=== PATIENT | male | born 1935 | race African-American/Black ===

== ENCOUNTER 2017-07-14 12:23 | Emergency (ER) | payer MEDICARE ==
[~2017-07-14] VITALS: Ht 180.3 cm; Wt 76.2 kg
[~2017-07-14 12:23] MED LIST: ASPIRIN-LOW81 MG ORAL; CLINDAMYCIN HC300 MG ORAL; DEBROX15 M1 BOTH EARS; DEBROX15 M1 OT; DIABETA5 MG ORAL; FOSINOPRIL SODI10 MG ORAL; HYDROCHLOROTHIA25 MG ORAL; METFORMIN HCL500 M1 ORAL; NORCO 5-325 TA1 EACH ORAL; PRAVASTATIN SOD20 M1 ORAL
--- NOTE | 2017-07-14 12:53 | Emergency Room Report ---
History of Present Illness General Chief Complaint: Upper Extremity Injury Source: Patient Present Illness HPI 82 YO Male presents to the ED c/o left hand swelling and bruising s/p fall on grass yesterday. pt. denies hitting his head, he denies LOC. denies pain at this time. Denies numbness tingling or loss of sensation or gross motor movements of the extremities, incontinence of bowel or bladder. Denies CP, Palpitations, LOC, AMS , dizziness, Changes in Vision, Sensation, paresthesias, or a sudden severe headache. Allergies: Coded Allergies: No Known Allergies (Verified , 08/10/11) Patient History Past Medical History: see triage record Past Surgical History: none Pertinent Family History: none Immunizations: UTD Reviewed Nursing Documentation: PMH: Agreed, PSxH: Agreed Nursing Documentation-PMH Past Medical History: No History, Except For Hx Cardiac Problems: Yes Hx Hypertension: Yes Hx Pacemaker: No Hx Asthma: No Hx COPD: No Hx Diabetes: Yes Hx Cancer: No Hx Gastrointestinal Problems: No Hx Dialysis: No History Of Psychiatric Problem: No Hx Neurological Problems: No Hx Cerebrovascular Accident: No Hx Seizures: No Review of Systems All Other Systems: negative except mentioned in HPI Physical Exam Vital Signs Date Time Temp Pulse Resp B/P (MAP) Pulse Ox O2 Delivery O2 Flow Rate FiO2 07/14/ 12:27 97.3 93 16 136/66 99 Room Air Sp02 EP Interpretation: reviewed, normal General Appearance: no apparent distress, alert, GCS 15, non-toxic Head: normocephalic, atraumatic Eyes: bilateral eye normal inspection, bilateral eye PERRL ENT: hearing grossly normal, normal voice Neck: full range of motion, supple/symm/no masses Respiratory: lungs clear, normal breath sounds, speaking full sentences Cardiovascular #1: regular rate, rhythm, normal capillary refill Rectal: deferred Musculoskeletal: back normal, gait/station normal, normal range of motion, non- tender, swelling - swelling, bruising to the left dorsal knuckles with extensive palmar bruising . Neurologic: alert, oriented x3, responsive, motor strength/tone normal, sensory intact, normal gait, speech normal, grossly normal Skin: no rash, warm/dry, well hydrated, other - swelling, bruising to the left dorsal knuckles with extensive palmar bruising . Procedures Additional Procedure Procedure Narrative -Single attempt was made to reduce the displacement of the fracture using traction and digital manipulation of the bones. - Clinical alignment is obtained. -Pt. tolerated the Procedure well. without need for anesthesia. -Volar hand splint is applied the telecasting technician, patient remained neurovascularly intact. -Discussed the need to followup with an commodity management specialist. Medical Decision Making YADY Attmitch Mae is my supervising Physician whom patient management has been discussed with. Diagnostic Impression: Primary Impression: Fracture of multiple phalanges of hand Qualified Codes: S62.609A - Fracture of unspecified phalanx of unspecified finger, initial encounter for closed fracture ER Course Pt. presents to the ED c/o left hand swelling and bruising s/p fall on grass yesterday. pt. denies hitting his head, he denies LOC. Ddx considered but are not limited to Fracture, dislocation, contusion, Sprain/ Strain/Spasm. Vital signs: are WNL, pt. is afebrile H&PE are most consistent with musculoskeletal injury will perform imaging to r/ o fractures/dislocations. ORDERS: - X-ray left hand 3 views - negative for fx, Dislocation, or significant soft tissue injury, per preliminary read in ED, and signed by YADY Fermin , my supervising physician has reviewed, and agrees with my interpretation. ED INTERVENTIONS: - -Single attempt was made to reduce the displacement of the fracture using traction and digital manipulation of the bones. - Clinical alignment is obtained. -Pt. tolerated the Procedure well. without need for anesthesia. -Volar hand splint is applied the telecasting technician, patient remained neurovascularly intact. -Discussed the need to followup with an commodity management specialist. DISCHARGE: At this time pt. is stable for d/c to home. Will provide printed patient care instructions, and any necessary prescriptions. Care plan and follow up instructions have been discussed with the patient prior to discharge. Last Vital Signs Date Time Temp Pulse Resp B/P (MAP) Pulse Ox O2 Delivery O2 Flow Rate FiO2 07/14/17 12:27 97.3 93 16 136/66 99 Room Air Disposition: HOME, SELF-CARE Condition: Stable Scripts Acetaminophen* (TYLENOL EXTRA STRENGTH*) 500 Mg Tablet 500 MG ORAL Q6H, #20 TAB 0 Refills Prov: Columba Fermin 07/14/17 Patient Instructions: Finger Fracture Additional Instructions: Take medications as directed. Follow up with an SOLDERER ASSEMBLER in 3-5 days, even if your symptoms have resolved. --Please review list of primary care clinics, if you do not already have a primary care provider Return sooner to ED if new symptoms occur, or current symptoms become worse. - Please note that this Emergency Department Report was dictated using [employer] microprobe operator technology software, occasionally this can lead to erroneous entry secondary to interpretation by the dictation equipment. Columba Fermin Jul 14, 2017 12:53
[2017-07-14] MEDS ORDERED: TYLENOL EXTRA500 MG ORAL (15:50)
[2017-07-14 16:00] VITALS: BP 132/68
--- NOTE | 2017-07-15 12:29 | Diagnostic Imaging Report ---
Indication: Pain status post fall Technique: XRAY Hand Complete L Comparison: None Findings: The bones are diffusely demineralized. There is mildly displaced and related fractures to the base of the second, third and fourth proximal phalanges. No associated dislocation. Question remote fracture deformities of the second and fourth metacarpal shafts. No radiopaque foreign body seen. Impression: Acute, displaced and angulated fractures of the second, third and fourth proximal phalangeal bases. This corresponds with the [facility] preliminary report.
== END 2017-07-14 16:05 | disposition home or self-care (01) ==
LOC: EMR 13:12
DX: S62.611A Displaced fracture of proximal phalanx of left index finger, initial encounter for closed fracture (principal); S62.613A Displaced fracture of proximal phalanx of left middle finger, initial encounter for closed fracture; S62.615A Displaced fracture of proximal phalanx of left ring finger, initial encounter for closed fracture; W19.XXXA Unspecified fall, initial encounter; Y92.89 Other specified places as the place of occurrence of the external cause; I10 Essential (primary) hypertension; E11.9 Type 2 diabetes mellitus without complications
CPT/HCPCS: 29125; 99283

== ENCOUNTER 2019-04-21 16:00 | Inpatient (IN) | payer MEDICARE ==
[~2019-04-21] VITALS: Ht 180.3 cm; Wt 64.0 kg
[~2019-04-21 16:00] MED LIST changes: +TYLENOL EXTRA500 MG ORAL
--- NOTE | 2019-04-21 16:10 | NUR ---
ED Nurse Note: pt arrives via [facility] for c/o low blood glucose at home. 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 denies n/v/dyspnea or pain. states family is en route here also. lydia norton.
--- NOTE | 2019-04-21 16:23 | Emergency Room Report ---
History of Present Illness General Chief Complaint: Abnormal Labs Source: Patient Present Illness HPI Patient presents with hypoglycemia. Initial sugar was 24. He takes oral medication and not insulin. Apparently he did not eat today. He denies any nausea, vomiting, diarrhea or pain in his body. There is no productive cough or sore throat. EMS report that his blood sugar was improved 209 after administration of D10 water in the field. No fevers, chills, chest pain, palpitations, dysuria, abdominal pain, shortness of breath, joint pain, rashes, depression, anxiety, visual changes, headache. Allergies: Coded Allergies: No Known Allergies (Verified , 08/10/11) Patient History Past Medical History: see triage record Social History: Reports: smoking; Denies: alcohol use, drug use Social History Narrative From home and lives with son Reviewed Nursing Documentation: PMH: Agreed; PSxH: Agreed Nursing Documentation-PMH Past Medical History: No History, Except For Hx Cardiac Problems: Yes Hx Hypertension: Yes Hx Pacemaker: No Hx Asthma: No Hx COPD: No Hx Diabetes: Yes Hx Cancer: No Hx Gastrointestinal Problems: No Hx Dialysis: No Hx Neurological Problems: No Hx Cerebrovascular Accident: No Hx Seizures: No Review of Systems All Other Systems: negative except mentioned in HPI Physical Exam Vital Signs Date Time Temp Pulse Resp B/P (MAP) Pulse Ox O2 Delivery O2 Flow Rate FiO2 04/21/19 16:05 75 16 137/55 (82) 98 Room Air Sp02 EP Interpretation: reviewed, normal General Appearance: alert, non-toxic, thin, Chronically Ill Head: normocephalic Eyes: bilateral eye normal inspection, bilateral eye PERRL, bilateral eye EOMI ENT: moist mucus membranes Neck: supple Respiratory: chest non-tender, lungs clear, normal breath sounds Cardiovascular #1: regular rate, rhythm Cardiovascular #2: 2+ radial (R) Gastrointestinal: normal inspection, normal bowel sounds, non tender, no mass, non-distended, scaphoid Genitourinary: no CVA tenderness Musculoskeletal: back normal, normal range of motion Neurologic: alert, motor strength/tone normal, DTRs symmetric, sensory intact, oriented - X2 Psychiatric: depressed affect Skin: warm/dry, other - Xerosis Medical Decision Making Diagnostic Impression: Primary Impression: Hypoglycemia Additional Impressions: UTI (urinary tract infection) Qualified Codes: N39.0 - Urinary tract infection, site not specified Diabetes Qualified Codes: 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 Differential includes not eating, acute myocardial infarction, electrolyte imbalance, renal failure, occult infection amongst others. Evaluation with EKG, chest x-ray and labs. Repeat Accu-Cheks and also diet will be given to the patient. The patient is placed on a fibreglass laminator. There is concern as the patient is on oral hypoglycemics which may cause prolonged hypoglycemia. EKG without injury. Chest x-ray no infiltrates. Labs with normal white count. Low blood sugar. Pyuria. Antibiotics given for urinary tract infection. Discussed with Dr. Mariano who wants patient to stay for observation. Glucose 74 after eating. D10W started. Blood sugar 82 at admission. Discussed with Dr. Serna. Laboratory Tests Test 04/21/19 16:50 04/21/19 18:35 White Blood Count 5.2 K/UL (4.8-10.8) Red Blood Count 4.01 M/UL (4.70-6.10) L Hemoglobin 11.2 G/DL (14.2-18.0) L Hematocrit 35.3 % (42.0-52.0) L Mean Corpuscular Volume 88 FL (80-99) Mean Corpuscular Hemoglobin 27.8 PG (27.0-31.0) Mean Corpuscular Hemoglobin Concent 31.6 G/DL (32.0-36.0) L Red Cell Distribution Width 15.4 % (11.6-14.8) H Platelet Count 386 K/UL (150-450) Mean Platelet Volume 5.7 FL (6.5-10.1) L Neutrophils (%) (Auto) 74.2 % (45.0-75.0) Lymphocytes (%) (Auto) 20.1 % (20.0-45.0) Monocytes (%) (Auto) 4.2 % (1.0-10.0) Eosinophils (%) (Auto) 0.6 % (0.0-3.0) Basophils (%) (Auto) 1.0 % (0.0-2.0) Prothrombin Time 10.7 SEC (9.30-11.50) Prothrombin Time INR 1.0 (0.9-1.1) PTT 25 SEC (23-33) Sodium Level 143 MMOL/L (136-145) Potassium Level 3.3 MMOL/L (3.5-5.1) L Chloride Level 103 MMOL/L (98-107) Carbon Dioxide Level 32 MMOL/L (21-32) Anion Gap 8 mmol/L (5-15) Blood Urea Nitrogen 12 mg/dL (7-18) Creatinine 1.0 MG/DL (0.55-1.30) Estimate Glomerular Filtration Rate mL/min (>60) Glucose Level 67 MG/DL (74-106) L Calcium Level 8.2 MG/DL (8.5-10.1) L Total Bilirubin 0.4 MG/DL (0.2-1.0) Aspartate Amino Transferase (AST) 27 U/L (15-37) Alanine Aminotransferase (ALT) 12 U/L (12-78) Alkaline Phosphatase 60 U/L (46-116) Total Creatine Kinase 103 U/L (26-308) Troponin I 0.004 ng/mL (0.000-0.056) Pro-B-Type Natriuretic Peptide 1001 pg/mL (0-125) H Total Protein 6.4 G/DL (6.4-8.2) Albumin 2.7 G/DL (3.4-5.0) L Globulin 3.7 g/dL Albumin/Globulin Ratio 0.7 (1.0-2.7) L Lipase 65 U/L (73-393) L Urine Color Yellow Urine Appearance Clear Urine pH 5 (4.5-8.0) Urine Specific [place] 1.015 (1.005-1.035) Urine Protein 1+ (NEGATIVE) H Urine Glucose (UA) Negative (NEGATIVE) Urine Ketones 1+ (NEGATIVE) H Urine Blood Negative (NEGATIVE) Urine Nitrite Negative (NEGATIVE) Urine Bilirubin Negative (NEGATIVE) Urine Urobilinogen 1 MG/DL (0.0-1.0) H Urine Leukocyte Esterase 2+ (NEGATIVE) H Urine RBC 2-4 /HPF (0 - 0) H Urine WBC 5-10 /HPF (0 - 0) H Urine Squamous Epithelial Cells None /LPF (NONE/OCC) Urine Amorphous Sediment Few /LPF (NONE) H Urine Bacteria Few /HPF (NONE) EKG Diagnostic Results Rate: normal Rhythm: NSR ST Segments: no acute changes Rhythm Strip Diag. Results EP Interpretation: yes Rhythm: NSR, no PVC's, no ectopy Chest X-Ray Diagnostic Results Chest X-Ray Diagnostic Results : Chest X-Ray Ordered: Yes # of Views/Limited/Complete: 1 View Indication: Other EP Interpretation: Yes Interpretation: no consolidation, no effusion, no pneumothorax Impression: No acute disease Electronically Signed by: Electronically signed by Aldair Zhao MD Last Vital Signs Date Time Temp Pulse Resp B/P (MAP) Pulse Ox O2 Delivery O2 Flow Rate FiO2 04/21/19 16:05 75 16 137/55 (82) 98 Room Air Status: improved Disposition: PLACE IN OBSERVATION Condition: Serious Aldair Zhao MD Apr 21, 2019 16:23
--- NOTE | 2019-04-21 16:30 | Diagnostic Imaging Report ---
Indication: Dyspnea Comparison: 11/07/2010 A single view chest radiograph was obtained. Findings: No definite infiltrate or pulmonary vascular congestion identified. The heart is normal in size. The aorta is mildly enlarged consistent with atherosclerotic vascular disease. The bones are osteopenic. Impression: No acute disease
--- NOTE | 2019-04-21 16:50 | NUR ---
ED Nurse Note: pt tolerates lab draw by rn. pt without aloc, speaking with son and is a/ox4 now.
--- NOTE | 2019-04-21 17:17 | NUR ---
ED Nurse Note: pt remains a/ox4, denies c/o at this time.awaiting lab results
[2019-04-21 17:20] LABS: ANION GAP 8 mmol/L (5-15); BLOOD UREA NITROGEN 12 mg/dL (7-18); CALCIUM 8.2 MG/DL (8.5-10.1); CARBON DIOXIDE 32 MMOL/L (21-32); CHLORIDE 103 MMOL/L (98-107); EOSINOPHILS % (AUTO) 0.6 % (0.0-3.0); HEMATOCRIT 35.3 % (42.0-52.0); HEMOGLOBIN 11.2 G/DL (14.2-18.0); LYMPHOCYTES % (AUTO) 20.1 % (20.0-45.0); MEAN CORPUSCULAR VOLUME 88 FL (80-99); MONOCYTES % (AUTO) 4.2 % (1.0-10.0); NEUTROPHILS % (AUTO) 74.2 % (45.0-75.0); PLATELET COUNT 386 K/UL (150-450); POTASSIUM 3.3 MMOL/L (3.5-5.1); RED BLOOD COUNT 4.01 M/UL (4.70-6.10); RED CELL DISTRIBUTION WIDTH 15.4 % (11.6-14.8); SODIUM 143 MMOL/L (136-145); WHITE BLOOD COUNT 5.2 K/UL (4.8-10.8)
--- NOTE | 2019-04-21 17:21 | NUR ---
ED Nurse Note: food tray given to pt. pt remains a/ox4
[2019-04-21 17:23] VITALS: BP 146/96
[2019-04-21 17:30] LABS: ALANINE AMINOTRANSFERASE 12 U/L (12-78); ALBUMIN 2.7 G/DL (3.4-5.0); ALBUMIN/GLOBULIN RATIO 0.7 (1.0-2.7); ALKALINE PHOSPHATASE 60 U/L (46-116); ASPARTATE AMINO TRANSFERASE 27 U/L (15-37); BILIRUBIN,TOTAL 0.4 MG/DL (0.2-1.0); CREATINE KINASE 103 U/L (26-308)
--- NOTE | 2019-04-21 18:02 | NUR ---
ED Nurse Note: pt with repeat accucheck as 54 after eating. md aware, pt tolerating po juice, remains a/ox4.
[2019-04-21 18:09] VITALS: BP 173/105
--- NOTE | 2019-04-21 18:20 | NUR ---
ED Nurse Note: md aware of htn and need for meds treatment for admit to m/s unit
[2019-04-21 18:47] VITALS: BP 163/119
[2019-04-21] MEDS ORDERED: Dextrose 10% 1,000 ML IV SCH (19:00)
[2019-04-21 19:01] LABS: APPEARANCE,URINE CLEAR; BILIRUBIN, URINE NEGATIVE (NEGATIVE); GLUCOSE, URINE (UA) NEGATIVE (NEGATIVE); KETONES,URINE 1+ (NEGATIVE); LEUKOCYTE ESTERASE ,URINE 2+ (NEGATIVE); NITRITE,URINE NEGATIVE (NEGATIVE); PH,URINE 5 (4.5-8.0); PROTEIN,URINE 1+ (NEGATIVE); UROBILINOGEN,URINE 1 MG/DL (0.0-1.0)
[2019-04-21 19:02] LABS: COLOR,URINE YELLOW
--- NOTE | 2019-04-21 19:28 | NUR ---
ED Nurse Note: pt with d10% infusing well via pump . report to oncoming rn
--- NOTE | 2019-04-21 19:28 | NUR ---
ED Nurse Note: belongings list done.
[2019-04-21] MEDS ORDERED: cefTRIAXone 1 GM in NS 55 ML IVPB ONE (19:30)
[2019-04-21 19:50] VITALS: BP 149/59
--- NOTE | 2019-04-21 20:00 | NUR ---
ED Nurse Note: telephone report given to JERONIMO Dailey for continuity of care
--- NOTE | 2019-04-21 20:20 | NUR ---
TRANSFER TO FLOOR: Patient transferred to [facility] as ordered, per dr. carl. Report given to erika michael. Belongings given to pt.
[2019-04-21 20:56] VITALS: BP 135/82
--- NOTE | 2019-04-21 21:00 | NUR ---
nurse's notes: received patient from ED awake, alert, ambulatory and oriented x 3 with periods of forgetfulness; placed on 2l/min via nasal cannula; o2 sats on RA between 60-80%; unable to get real HR, noted between high 40s to 176bpm.
--- NOTE | 2019-04-21 21:04 | NUR ---
nurse's notes: BS 68 upon arrival to the floor; awaiting return call of dr. zimmerman for possible change in admission order from [facility] to tele
--- NOTE | 2019-04-21 22:00 | NUR ---
NURSE NOTES: Received report from Tereso Jerome RN. Regarding patients transfer from [facility] to [facility] floor. Belongings checked and noted. Head to toe assessment initiated with no observed skin issue. Patient in bed AAO x3-4 with no complaints of acute pain at this time. IV line intact and patent, placed on continuous cardiac monitoring per protocol. Floor orders received and transferred. Kept clean, dry, and comfortable in bed. Safety precaution in place; siderails X3 up, call light within reach, bed in lowest position, brakes and alarm on at all times. Needs and wants anticipated and attended. Will continue plan of care.
[2019-04-21] MEDS: Dextrose 10% 1,000 ML IV SCH (22:12)
[2019-04-22] VITALS: BP 106/58
--- NOTE | 2019-04-22 03:03 | NUR ---
NURSE NOTES: Patient in bed with no S/S of distress/ will continue to monitor.
[2019-04-22 04:00] VITALS: BP 147/70
[2019-04-22 06:55] LABS: BASOPHILS % (AUTO) 0.5 % (0.0-2.0); EOSINOPHILS % (AUTO) 1.3 % (0.0-3.0); HEMATOCRIT 30.5 % (42.0-52.0); HEMOGLOBIN 9.5 G/DL (14.2-18.0); LYMPHOCYTES % (AUTO) 26.2 % (20.0-45.0); MEAN CORPUSCULAR VOLUME 88 FL (80-99); NEUTROPHILS % (AUTO) 65.1 % (45.0-75.0); PLATELET COUNT 382 K/UL (150-450); RED BLOOD COUNT 3.47 M/UL (4.70-6.10); RED CELL DISTRIBUTION WIDTH 16.1 % (11.6-14.8); WHITE BLOOD COUNT 6.4 K/UL (4.8-10.8)
[2019-04-22 07:20] LABS: ANION GAP 9 mmol/L (5-15); BLOOD UREA NITROGEN 10 mg/dL (7-18); CALCIUM 8.2 MG/DL (8.5-10.1); CARBON DIOXIDE 30 MMOL/L (21-32); CHLORIDE 99 MMOL/L (98-107); CREATININE 1.1 MG/DL (0.55-1.30); SODIUM 138 MMOL/L (136-145)
--- NOTE | 2019-04-22 07:21 | NUR ---
HAND-OFF: Report given to Hadley Johnson RN. Patient in bed with no S/S of distress. Endorsed plan of care.
--- NOTE | 2019-04-22 07:30 | NUR ---
NURSE NOTES: Received report from JERONIMO Salvador. The patient is resting on the bed without acute distress or shortness of breath. The patient's bed in the lowest position, call light in reach, and fall and aspiration precaution reinforced. IV site on R hand 22G is intact and patent and running D10 50mL/hr. Per Sep, Dr. Serna will put rest on the order as soon as possible. Will continue plan of care.
[2019-04-22 08:00] VITALS: BP 126/57
[2019-04-22] MEDS: cefTRIAXone 1gm/D5W 55ml IVPB SCH ×2 (09:50)
[2019-04-22] MEDS ORDERED: LEVAQUIN500 MG ORAL (10:13)
--- NOTE | 2019-04-22 11:26 | NUR ---
NURSE NOTES: Dr. Serna ordered the patient to be discharged as the patient is stable. Dr. Serna ordered 40mEq KCL for hypkalemia, and discharged to home with home health and home medication except diabetic medication and follow up with primary care physician. Notified Dr. Serna that he has been on 2L NC for breathing support and would like to order supplemental oxygen on way home. Will follow up regarding it. Will continue plan of care until clarification cane be made. Addendum: 04/22/19 at 1528 by Bruno Johnson RN Hypokalemia
--- NOTE | 2019-04-22 11:38 | NUR ---
NURSE NOTES: Paged Dr. Serna again for episode of 6 beats of v-tach and possible needs of oxygen again. The patient is stable without acute distress, shortness of breath, dizziness, or chest apin. Will wait for Dr. Serna to call back. Will continue plan of care until Dr. Serna responds back.
--- NOTE | 2019-04-22 11:45 | NUR ---
NURSE NOTES: Per Dr. Serna, no new order for 6 beats of v tach. No signs of acute distress or shortness of breath. Will continue plan of care.
[2019-04-22 12:00] VITALS: BP 122/72
--- NOTE | 2019-04-22 12:00 | NUR ---
NURSE NOTES: LURDES Flores for Dr. Oquendo came in and cancelled the discharge due to hypokalemia. LURDES Flores ordered BMP and CBC tomorrow am and 10mEq x4 IVPB KCL tomorrow. Also consulted Dr. Oliveira, the irish moss operator, regarding episode of 6 beats of v-tach. Carried out the order. Informed the family about cancellation of discharge. Will continue plan of care.
--- NOTE | 2019-04-22 13:00 | NUR ---
NURSE NOTES: Notified Dr. Serna regarding cancellation of discharge by LURDES Flores and order of KCL tomorrow, BMP, CBC lab, and wax pattern repairer's consult. Per Dr. Serna, LURDES Flores is not on the case so cancel all LURDES Flores's order. Will carry out the order. Will continue plan of care.
--- NOTE | 2019-04-22 13:09 | History & Physical ---
History of Present Illness General Reason for Hospitalization: Abnormal Labs Present Illness Allergies: Coded Allergies: No Known Allergies (Verified , 08/10/11) Medication History Scheduled Acetaminophen* (Tylenol Extra Strength*), 500 MG ORAL Q6H Aspirin (Aspirin EC), 81 MG ORAL DAILY, (Reported) Carbamide Peroxide (Debrox), 10 DROP BOTH EARS TWICE A DAY Fosinopril Sodium (Fosinopril Sodium*), 40 MG ORAL DAILY, (Reported) Hydrochlorothiazide* (Hydrochlorothiazide*), 25 MG ORAL DAILY, (Reported) Levofloxacin* (Levaquin*), 500 MG ORAL DAILY Pravastatin Sod* (Pravastatin Sod*), 20 MG ORAL BEDTIME, (Reported) Discontinued Medications Metformin Hcl* (Metformin Hcl*), 500 MG ORAL TWICE A DAY, (Reported) Discontinued Reason: Medication dose changed Patient History Healthcare decision maker ayana and Jr Max son Resuscitation status Full Code Advanced Directive on File Review of Systems Review of Symptoms General ROS: no weight loss or fever Psychological ROS: no depression or mood changes, no memory loss Ophthalmic ROS: no visual changes or eye irritation ENT ROS: no nasal congestion, hearing loss, dizziness Allergy and Immunology ROS: no allergic symptoms or urticaria Hematological and Lymphatic ROS: no swollen glands, unusual bleeding or bruising Endocrine ROS: no polyuria, polydipsia, weight changes, temperature intolerance Respiratory ROS: no cough, on 2L 02 NC for SOB---RN to attempt to wean off 02 per pulmonary Cardiovascular ROS: no chest pain, some reported baseline dyspnea on exertion Gastrointestinal ROS: denies abdominal pain, bright red blood in stool. Musculoskeletal ROS: no myalgias or arthralgias Neurological ROS: no TIA or stroke symptoms Dermatological ROS: no new or changing skin lesions, rashes or pruritis Physical Exam Physical Exam General appearance: alert, cooperative, no distress, appears stated age Head: Normocephalic, without obvious abnormality, atraumatic Eyes: bilateral thickened/dry Rheum noted, but no redness, PERRL, EOM's intact. Fundi benign Throat: Lips, mucosa, and tongue normal. Teeth and gums normal Neck: supple, symmetrical, trachea midline, no adenopathy, thyroid: not enlarged, symmetric, no tenderness/mass/nodules, no carotid bruit and no JVD Lungs: clear to auscultation bilaterally, 2L 02 NC, no cough/wheezing/rhonchi Heart: regular rate and rhythm, S1, S2 normal, no murmur, click, rub or gallop Abdomen: soft, non-tender. Bowel sounds normal. No masses, no organomegaly Extremities: extremities normal, atraumatic, no cyanosis or edema Pulses: 2+ and symmetric Skin: Skin color, texture, turgor normal. No rashes or lesions Neurologic: Grossly normal Last 24 Hour Vital Signs Date Time Temp Pulse Resp B/P (MAP) Pulse Ox O2 Delivery O2 Flow Rate FiO2 04/22/19 09:00 Room Air 04/22/19 08:00 96.9 86 18 126/57 (80) 100 04/22/19 08:00 91 04/22/19 04:00 83 04/22/19 04:00 96.8 64 18 147/70 (95) 100 04/22/19 00:00 82 04/22/19 00:00 98.1 75 17 106/58 (74) 99 04/21/19 22:00 82 04/21/19 21:05 Nasal Cannula 2.0 04/21/19 21:00 Nasal Cannula 2.0 04/21/19 20:56 97.7 18 135/82 (99) 100 04/21/19 20:24 98.7 83 22 147/85 98 Room Air 04/21/19 19:50 98.4 89 18 149/59 100 Room Air 04/21/19 18:47 97 16 163/119 98 Room Air 04/21/19 18:09 101 16 173/105 98 04/21/19 17:23 75 15 146/96 99 Room Air 04/21/19 16:05 75 16 137/55 (82) 98 Room Air Intake and Output 04/21/19 04/22/19 19:00 07:00 Intake Total 0 ml 105 ml Output Total 50 ml Balance 0 ml 55 ml Intake Oral 0 ml IV Total 105 ml Output Urine Total 50 ml Laboratory Tests Test 04/21/19 16:50 04/21/19 18:35 04/22/19 06:01 White Blood Count 5.2 K/UL (4.8-10.8) 6.4 K/UL (4.8-10.8) Red Blood Count 4.01 M/UL (4.70-6.10) L 3.47 M/UL (4.70-6.10) L Hemoglobin 11.2 G/DL (14.2-18.0) L 9.5 G/DL (14.2-18.0) L Hematocrit 35.3 % (42.0-52.0) L 30.5 % (42.0-52.0) L Mean Corpuscular Volume 88 FL (80-99) 88 FL (80-99) Mean Corpuscular Hemoglobin 27.8 PG (27.0-31.0) 27.3 PG (27.0-31.0) Mean Corpuscular Hemoglobin Concent 31.6 G/DL (32.0-36.0) L 31.1 G/DL (32.0-36.0) L Red Cell Distribution Width 15.4 % (11.6-14.8) H 16.1 % (11.6-14.8) H Platelet Count 386 K/UL (150-450) 382 K/UL (150-450) Mean Platelet Volume 5.7 FL (6.5-10.1) L 5.6 FL (6.5-10.1) L Neutrophils (%) (Auto) 74.2 % (45.0-75.0) 65.1 % (45.0-75.0) Lymphocytes (%) (Auto) 20.1 % (20.0-45.0) 26.2 % (20.0-45.0) Monocytes (%) (Auto) 4.2 % (1.0-10.0) 7.0 % (1.0-10.0) Eosinophils (%) (Auto) 0.6 % (0.0-3.0) 1.3 % (0.0-3.0) Basophils (%) (Auto) 1.0 % (0.0-2.0) 0.5 % (0.0-2.0) Prothrombin Time 10.7 SEC (9.30-11.50) Prothromb Time International Ratio 1.0 (0.9-1.1) Activated Partial Thromboplast Time 25 SEC (23-33) Sodium Level 143 MMOL/L (136-145) 138 MMOL/L (136-145) Potassium Level 3.3 MMOL/L (3.5-5.1) L 3.0 MMOL/L (3.5-5.1) L Chloride Level 103 MMOL/L (98-107) 99 MMOL/L (98-107) Carbon Dioxide Level 32 MMOL/L (21-32) 30 MMOL/L (21-32) Anion Gap 8 mmol/L (5-15) 9 mmol/L (5-15) Blood Urea Nitrogen 12 mg/dL (7-18) 10 mg/dL (7-18) Creatinine 1.0 MG/DL (0.55-1.30) 1.1 MG/DL (0.55-1.30) Estimat Glomerular Filtration Rate mL/min (>60) mL/min (>60) Glucose Level 67 MG/DL (74-106) L 142 MG/DL (74-106) H Calcium Level 8.2 MG/DL (8.5-10.1) L 8.2 MG/DL (8.5-10.1) L Total Bilirubin 0.4 MG/DL (0.2-1.0) Aspartate Amino Transf (AST/SGOT) 27 U/L (15-37) Alanine Aminotransferase (ALT/SGPT) 12 U/L (12-78) Alkaline Phosphatase 60 U/L (46-116) Total Creatine Kinase 103 U/L (26-308) Troponin I 0.004 ng/mL (0.000-0.056) Pro-B-Type Natriuretic Peptide 1001 pg/mL (0-125) H Total Protein 6.4 G/DL (6.4-8.2) Albumin 2.7 G/DL (3.4-5.0) L Globulin 3.7 g/dL Albumin/Globulin Ratio 0.7 (1.0-2.7) L Lipase 65 U/L (73-393) L Urine Color Yellow Urine Appearance Clear Urine pH 5 (4.5-8.0) Urine Specific [place] 1.015 (1.005-1.035) Urine Protein 1+ (NEGATIVE) H Urine Glucose (UA) Negative (NEGATIVE) Urine Ketones 1+ (NEGATIVE) H Urine Blood Negative (NEGATIVE) Urine Nitrite Negative (NEGATIVE) Urine Bilirubin Negative (NEGATIVE) Urine Urobilinogen 1 MG/DL (0.0-1.0) H Urine Leukocyte Esterase 2+ (NEGATIVE) H Urine RBC 2-4 /HPF (0 - 0) H Urine WBC 5-10 /HPF (0 - 0) H Urine Squamous Epithelial Cells None /LPF (NONE/OCC) Urine Amorphous Sediment Few /LPF (NONE) H Urine Bacteria Few /HPF (NONE) Height (Feet): 5 Height (Inches): 11.00 Weight (Pounds): 138 Medications Current Medications Medications (Trade) Dose Ordered Sig/Yadi Route PRN Reason Start Time Stop Time Status Last Admin Dose Admin Ceftriaxone Sodium 1 gm/ Dextrose 55 ml @ 110 mls/hr DAILY IVPB 04/22/19 09:00 04/29/19 08:59 04/22/19 09:50 Dextrose 1,000 ml @ 50 mls/hr Q20H IV 04/21/19 21:15 05/21/19 21:14 04/21/19 22:12 Potassium Chloride 100 ml @ 100 mls/hr Q1HR IVPB 04/22/19 13:00 04/22/19 16:59 Potassium Chloride (K-Dur) 40 meq ONCE ORAL 04/22/19 11:30 04/22/19 13:00 04/22/19 11:52 Objective Narrative This is an 83 y.o male who presented to the ED with hypoglycemia. The Willie BABCOCK has taken patient off of DM medication. D/C'd by Pulmonology Willie. Mr. Patel continues to be hypokalemic despite the 40 mEq of K+, PO given this morning. He also endorses intermittent SOB with exertion that is ongoing and staff assistant noted 6 beats of Vtach this morning. He denies chest pain or bilateral lower edema. Allergies: Assessment/Plan Assessment/Plan: Hypoglycemia w/o coma UTI DM 2 with hypoglycemia Vtach CBC, BMP at 0400 tomorrow morning If hypokalemic, 40 mEq K+, IV to be given tomorrow. Keep patient on site monitor. Consult Dr. Roxanne MD (Cardiology) Attempt to ween 2L 02 NC, per Pulmonology Dr. Tapia. Will continue to reevaluate renal function and reconsider D/C if stable, after cleared by Cardiology. [facility] Hospital declaration INPATIENT level of care is warranted for this patient because patient is a 89 year old with who presents with suspicion of . I have a high level of concern because . Patient is at high risk for . Plan of care/treatment include . Patient care is expected to be greater than 2 midnights. OBSERVATION level of care is warranted for this patient. Patient is a 89 year old with who presents with . Patient will be admitted for 1 midnight, but if additional night(s) is/are necessary, patient will be converted to inpatient status for the entire hospitalization Disposition: Once the patient is stable to leave the hospital, I anticipate the patient will likely be discharged to the following environment: Estimated discharge date: I spent 70 minutes on this patient's case, and minutes was dedicated to counseling and/or care coordination. MIPS (Merit-based Incentive Payment System) Applicable CPT: 28257, 99893 CHECK ALL THAT ARE MET: Measure #5 (CHF): All ages. Prescribe SHAWN/ARB upon discharge for patients with left ventricular systolic dysfunction. If not, the reason is clearly documented in the medical chart. Measure #8 (CHF): All ages. Prescribe a beta panchito upon discharge for patients with left ventricular systolic dysfunction. If not, the reason is clearly documented in the medical chart. Measure #47 Advance care plan or surrogate decision maker documented in the medical record. Measure #130 The provider has documented, updated, or reviewed the patients current medication list and has documented it in the patients note. Measure #374 (All): Send report to referring provider. Measure #407(Sepsis due to MSSA bacteremia): Age 18+ Patient treated with a beta-lactam antibiotic (Nafcillin, Oxacillin or Cefazolin) as definitive therapy. MEDICAL COMPLEXITY High complexity medical decision making (need 2/3 categories) Problem - need 4 points Acute/new problem with new plan for workup (4 points, 1 max) Acute/new problem without additional workup (3 points, 1 max) Unstable chronic problem actively being managed (2 point each, 2 max) Stable chronic problem actively being managed (1 point each, 2 max) Self-limited/transient process (constipation, muscle ache, etc) (1 point each , 2 max) Data - need 4 points Reviewed labs/imaging studies (1 points, 2 max) Independent review of imaging (EKG, xrays, etc) (2 points, 2 max) Discussed case with consult/other MD/RN (2 points, 2 max) High Risk - qualify if have one of the following: Severe exacerbation of acute problem, acute mental status change, IV narcotics , monitoring drug levels (vancomycin, INR, tacrolimus etc) Adriana Flores N.P. Apr 22, 2019 13:09
--- NOTE | 2019-04-22 13:35 | NUR ---
RD ASSESSMENT & RECOMMENDATIONS SEE CARE ACTIVITY FOR COMPLETE ASSESSMENT DAILY ESTIMATED NEEDS: Needs based on Underweight, DM 62.7kg 30-35 kcals/kg 9422-3198 total kcals 1-1.5 g protein/kg 63-94 g total protein 25-30 mL/kg 8047-6583 total fluid mLs NUTRITION DIAGNOSIS: Increased kcal and protein needs r/t underweight status as evidenced by pt is @80% of ideal body weight w/ generalized mild to moderate wasting. CURRENT DIET: Regular PO DIET RECOMMENDATIONS: Maintain REGULAR DIET ADDITIONAL RECOMMENDATIONS: - Rec CCHO diet w/ consistently elev BG - NISS prn - Obtain a standing scale wt Txr pt to bed w/ scale - Add high protein snacks in b/w meals Glucerna 1 tetra babs daily
--- NOTE | 2019-04-22 15:00 | NUR ---
NURSE NOTES: Spoke with Dr. Serna for LURDES Flores's cancellation of discharge order. Per Dr. Serna, LURDES Flores is not on the case and clarification has made with Dr. Oquendo. Dr. Serna was notified regarding 6 beats of V tach episode 04/22 @1138 but no new order but still want to discharge the patient. Also, the patient has been on 2L NC and notified to Dr. Serna regarding possible needs of home oxygen therapy. Dr. Serna ordered to be discharged without oxygen since the patient's oxygen saturation was 100% without nasal canula. Notified the charge nurse and the bilingual patient support caseworker regarding it. The primary nurse notified the change in condition in terms of 6 beats of v-tach, but Dr. Serna still wants to discharge the patient to home with home health. The patient's oxygen saturation is 100% in room air and glucose was 190 on the last figure. 40mEq KCL replace for hypoglycemia. Will work on discharge as ordered. Will inform the patient and family member is change of plan. Will continue plan of care until discharge.
--- NOTE | 2019-04-22 15:51 | NUR ---
*-* INSURANCE *-* ALL AVAILABLE CLINICALS HAVE BEEN FAXED TO: [facility] ABEBA:KATY P: [phone] F: [phone]
[2019-04-22 16:00] VITALS: BP 150/95
--- NOTE | 2019-04-22 16:09 | NUR ---
CONTRACT SPECIALIST NOTES SPOKE WITH SANGEETA FROM [facility], PT SET UP FOR HOME HEALTH WITH [facility], DATE OF SERVICE TO BEGIN TOMORROW.OK TO SEND THE PATIENT HOME.
--- NOTE | 2019-04-22 18:10 | NUR ---
NURSE NOTES: patient for discharge home with HH, and son was contacted by primary RN and son stated he is far away and cant come to filler picker the pt. pt mobility was assessed, able to ambulate with assist with cane, gait unsteady and weak, call placed to Dr Serna and spoke with him and ordered PT eval for mobility and can be discharge tomorrow, spoke with Bernadette CAMPOS (tel #[phone]) at [facility] and she was informed, and she said she will notify the son.
[2019-04-22] MEDS: Dextrose 10% 1,000 ML IV SCH (18:11)
--- NOTE | 2019-04-22 18:11 | NUR ---
NURSE NOTES: Spoke with Chelsea, the charge nurse, regarding the communication made with Dr. Serna and the charge nurse. Since the family member cannot come to the hospital to pick the patient up, the patient cannot be discharged today. Dr. Serna was notified regarding the situation. As the patient is staying by himself at home with unsteady gait, Dr. Serna and the charge nurse discussed about the option for home with home health or SNF placement for discharge. Per Dr. Serna's order, the charge nurse put the PT evaluation. Informed the change of the plan to the patient and family member. Will continue plan of care.
--- NOTE | 2019-04-22 18:50 | NUR ---
NURSE NOTES: Notified Dr. Serna regarding 2 and 4 beats of V-tach on 1836, 7 and 2 beats of V-tach on 1837, and 6 seconds of SVT on 1849. The patient was up in bed tried to use the urinal. The patient denies of acute distress, shortness of breath, dizziness, or chest pain. No new order per Dr. Serna. Will continue plan of care.
--- NOTE | 2019-04-22 19:10 | NUR ---
HAND-OFF: Report given to JERONIMO Silver. The patient is resting on the bed without acute distress or shortness of breath. The patient's bed in the lowets position, call lgith in reach, and fall and aspiration precaution reinforced. IV site on R hand 22G intact and patent. Informed JERONIMO Silver regarding discharge instruction that was given by Dr. Serna. Endorsed plan of care.
[2019-04-22 20:00] VITALS: BP 132/68
--- NOTE | 2019-04-22 20:00 | NUR ---
NURSE NOTES: Received pt and report from JERONIMO Anderson. Observed pt resting in bed with both eyes open and family members at bedside. assistant real estate manager is in placed, IV site intact, asymptomatic, and patent. Bed is in the lowest position and locked. Call light within reach. No signs/symptoms of acute distress noted at this time. Will continue plan of care.
--- NOTE | 2019-04-22 22:07 | NUR ---
NURSE NOTES: Contacted Dr. Serna regarding pt's 6 seconds of SVT; HR 150 bpm @ 1850 and V-tach episodes @ 1276-6381. Dr. Serna said he is aware that the pt has this often and to not contact him any further if the pt has it again and is asymptomatic. Will continue to monitor pt.
[2019-04-23] VITALS: BP 134/69
--- NOTE | 2019-04-23 03:45 | History and Physical Report ---
DATE OF ADMISSION: 04/21/2019 HISTORY OF PRESENT ILLNESS: This is an 83-year-old male who was admitted to the hospital after presenting yesterday with hypoglycemia. The patient states that he takes medications and also does not take insulin; however, he states he has been feeling his appetite is poor. workup is concerning to have a UTI. He is also hypoglycemic with a glucose admitted to the hospital. PAST MEDICAL HISTORY: Notable for hypertension and diabetes mellitus. PAST SURGICAL HISTORY: None reported. HOME MEDICATIONS: The patient is unable to recall. REVIEW OF SYSTEMS: The patient denies any headaches, hematemesis, melena, or hematochezia. PHYSICAL EXAMINATION: GENERAL: Reveals an 83-year-old male. HEENT: Unremarkable. LUNGS: Clear breath sounds. ABDOMEN: Soft. EXTREMITIES: There is no edema. NEUROLOGIC: Nonfocal. LABORATORY DATA: Lab testing is notable for glucose this morning being . The remaining labs are unremarkable. Potassium is 3. IMPRESSION: 1. Hypoglycemia due to poor oral intake. 2. Possible UTI. 3. Hypokalemia. DISCUSSION: Admit to the hospital for observation. We will hydrate. Replace potassium. Give regular diet until discharge home tomorrow without oral hypoglycemics. We will also start empiric antibiotics. Tucker Serna M.D. DR: JOHN PAUL JOB#: [id number] CC:
[2019-04-23 04:00] VITALS: BP 136/86
--- NOTE | 2019-04-23 07:45 | NUR ---
HAND-OFF: Report given to JERONIMO Kennedy.
[2019-04-23 08:00] VITALS: BP 106/64
--- NOTE | 2019-04-23 09:15 | NUR ---
PT NOTE Received MD order for PT evaluation, medical record reviewed. Attempted to see patient for PT evaluation however patient declining to participate. Educated patient on purpose of PT evaluation however continued to decline. Marcia DECKER notified.
--- NOTE | 2019-04-23 09:21 | Pulmonology Progress Note ---
Assessment/Plan Assessment/Plan IMPRESSION: 1. Hypoglycemia due to poor oral intake. 2. Possible UTI. 3. Hypokalemia. 4. Cardiac arrhythmias DISCUSSION: A DC home on PO abx DC all oral hypoglycemics Followup with PCP Pt declines PT eval He declines cardiac workup Subjective Interval Events: None new Constitutional: Reports: no symptoms HEENT: Repors: no symptoms Respiratory: Reports: no symptoms Cardiovascular: Reports: no symptoms Gastrointestinal/Abdominal: Reports: no symptoms Allergies: Coded Allergies: No Known Allergies (Verified , 08/10/11) Objective Last 24 Hour Vital Signs Date Time Temp Pulse Resp B/P (MAP) Pulse Ox O2 Delivery O2 Flow Rate FiO2 04/23/19 04:00 97.0 90 19 136/86 (103) 98 04/23/19 04:00 115 04/23/19 00:00 75 04/23/19 00:00 96.8 75 17 134/69 (90) 96 04/22/19 21:00 Room Air 04/22/19 20:00 97.7 98 18 132/68 (89) 97 04/22/19 19:43 100 04/22/19 18:37 89 04/22/19 16:00 97.5 78 18 150/95 (113) 97 04/22/19 12:00 108 04/22/19 12:00 97.7 77 18 122/72 (89) 98 04/22/19 12:00 93 Intake and Output 04/22/19 04/23/19 19:00 07:00 Intake Total 360 ml 160 ml Output Total 150 ml 600 ml Balance 210 ml -440 ml Intake Oral 360 ml 160 ml Output Urine Total 150 ml 600 ml # Voids 3 3 General Appearance: no acute distress HEENT: normocephalic Respiratory/Chest: chest wall non-tender, lungs clear Cardiovascular: normal peripheral pulses, normal rate Current Medications Medications (Trade) Dose Ordered Sig/Yadi Route PRN Reason Start Time Stop Time Status Last Admin Dose Admin Ceftriaxone Sodium 1 gm/ Dextrose 55 ml @ 110 mls/hr DAILY IVPB 04/22/19 09:00 04/29/19 08:59 04/22/19 09:50 Dextrose 1,000 ml @ 50 mls/hr Q20H IV 04/21/19 21:15 05/21/19 21:14 04/22/19 18:11 Tucker Serna MD Apr 23, 2019 09:21
--- NOTE | 2019-04-23 10:23 | NUR ---
NURSE NOTES: Called patients son notifying him of the DC He said he was at work and was told that the pt would be going to a rehab center for "a week or two". I told him that the pt was discharged with home health set to start day after patient goes home. He asked that I follow up with case management. He also said that he is at work and he is unable to answer the phone. I told him I would call and leave him a message.
--- NOTE | 2019-04-23 10:28 | NUR ---
NURSE NOTES: Pts nephew Rajeev called and asked if the patient was going to be discharged. He said he would call another nephew that lives close to the area so that he can pick him up. He will call us back. I called and left message for son explaining that patient was discharged with home health and that nephew was trying to pick him up. WIll await call back
[2019-04-23 12:00] VITALS: BP 112/57
--- NOTE | 2019-04-23 12:00 | NUR ---
NURSE NOTES: Pts son arrived. He does not have a car. Asked if he could go in a taxi with his dad. I told him I would have to check with the child care supervisor and let him know.
--- NOTE | 2019-04-23 12:15 | NUR ---
NURSE NOTES: Called Jasmyn to ask if we are able to send patients son with him in the taxi. she said she would call me back. Let CN know
[2019-04-23] MEDS: cefTRIAXone 1gm/D5W 55ml IVPB SCH ×2 (12:20)
--- NOTE | 2019-04-23 12:30 | NUR ---
NURSE NOTES: Followed up with Joaquina in . She stated that she we can not send the patient home in a taxi. Pts son stated that he could go home and wait for the patient while pt goes on an ambulance. She asked if the patient is stable. Told her that the pt needs assistance with walking. She said we have to get ambulance from patients insurance. I let the son know. Son states he has to go to work.
--- NOTE | 2019-04-23 13:00 | NUR ---
NURSE NOTES: Called Joaquina to follow up on transportation. No answer will try back
--- NOTE | 2019-04-23 13:28 | NUR ---
NURSE NOTES: taxi transportation has been obtained. PT and son notified.
--- NOTE | 2019-04-23 13:43 | NUR ---
NURSE NOTES: Called the taxi company to ask where the warehouse driver was. [employer] said that a warehouse driver had not been found yet. may take 10-15 minutes more
--- NOTE | 2019-04-23 14:12 | NUR ---
NURSE NOTES: Called [employer] company again. Residential Program Worker stated that the dumpcart driver is on his way and is currently on [address].
--- NOTE | 2019-04-23 14:50 | NUR ---
NURSE NOTES: Patient was discharged per MD orders. Pt accompanied by son at time of discharge. Heart monitor removed and returned to [place]. [facility] accounted for. Prescription antibiotics delivered to patient. Pt left with son on a taxi.
--- NOTE | 2019-04-23 15:11 | Cardiology Report ---
APPROVED REPORT EKG Measurement Heart [id number] Sinus rhythm with occasional, and consecutive premature ventricular complexes and premature atrial complexes Left axis deviation Abnormal ECG
--- NOTE | 2019-04-24 10:58 | Discharge Summary ---
Discharge Summary Discharge Summary _ DATE OF ADMISSION: 04/21/2019 DATE OF DISCHARGE: 04/23/2019 DISCHARGED BY: Dr. Serna REASON FOR ADMISSION: 83 years old male with past medical history of hypertension, diabetes mellitus, presented to emergency department with hypoglycemia. Initial blood sugar in the field was 24. Blood sugar improved to 209 after administration of D10 in the field. Patient reported that he did not eat anything that day. Patient was on oral anti-glycemic . He does not take any insulin. Patient denied fever or chills . No productive cough or sore throat. He denied chest pain, shortness of breath, palpitations. He denied nausea , vomiting , diarrhea . He denied dysuria or abdominal pain No joint pain , no rashes. No visual changes , no headache. Upon evaluation vital signs were stable. Laboratory work-up revealed no leukocytosis, hemoglobin 11.2 , hematocrit 35.3. Potassium 3.3. Stable renal parameters. Glucose 67 . Troponin - 0.004 , pro BNP 1001 . Albumin 2.7 . Urinalysis revealed pyuria and few bacteria , +2 leukocyte esterase. Chest x-ray demonstrated no acute disease . Patient started on IV fluids with D10W and empiric antibiotic for possible UTI. Patient admitted to telemetry floor for further management. CONSULTANTS: tool crib attendant Dr. Recio [facility]: Patient admitted and started on the IV fluids with D10. Potassium was replaced. Patient started on diet without oral hypoglycemic medications. Patient started on empiric antibiotics for possible UTI. Blood pressure was closely monitored. Bridge Manager followed for persistent hypokalemia . Potassium was further replaced. Renal parameters remained stable. Telemetry showed sinus rhythm with some PVC and episodes of sinus tachycardia . Heart rate stabilized . Blood sugar stabilized . Oral intake was sufficient. Patient was stable for discharge home with home health services. FINAL DIAGNOSES: Hypoglycemia due to poor oral intake-resolved Hypokalemia Possible UTI DISCHARGE MEDICATIONS: See Medication Reconciliation list. DISCHARGE INSTRUCTIONS: Patient was discharged home with home health services/[facility] health -to be arranged as per [facility] Follow up with primary care provider in one week. I have been assigned to dictate discharge summary for this account. I was not involved in the patient's management. Carrie Groves NP Apr 24, 2019 10:58
--- NOTE | 2019-04-24 11:07 | NUR ---
*-* INSURANCE *-* DISCHARGE SUMMARY HAS BEEN FAXED TO: [facility] [id number] P: [phone] F: [phone]
== END 2019-04-23 14:42 | disposition home health service (06) | DRG 638 ==
LOC: EDBD 16:00 → EMR 16:30 → 3E 19:30 → EDBEDREQ 19:50 → OBSVTOIN 19:51 → 2E 22:01
DX: E11.649 Type 2 diabetes mellitus with hypoglycemia without coma (principal); N39.0 Urinary tract infection, site not specified; I47.2 Ventricular tachycardia; E87.6 Hypokalemia; Z79.82 Long term (current) use of aspirin
CPT/HCPCS: 36415; 71045; 80048; 80053; 81003; 82550; 82962; 83690; 83880; 84484; 85025; 85610; 85730; 93005; 96361; 96365; 99285; J8499